=== PATIENT | female | born 1995 | race Caucasian/White ===

== ENCOUNTER → 2017-08-07 | Outpatient (CLI) | payer OTHER ==
[~2017-08-07] MED LIST: ACE3 PO; AUG875 PO; MINOCY50PT PO
--- NOTE | 2017-08-07 11:11 | RADIOLOGY IMAGING REPORT ---
FACILITY: [facility] PATIENT NAME: Courtney Ramos : 1995 MR: [id number] V: [id number] EXAM DATE: ORDERING PHYSICIAN: IRMA KU TECHNOLOGIST: Location: [facility] Patient: Courtney Ramos : 1995 Visit/Account:[id number] Date of Sevice: 08/07/2017 CHEST PA AND LAT INDICATION: Positive TB test COMPARISON: 09/28/2014 FINDINGS: Heart size within normal limits. There is no focal infiltrate or lobar consolidation. There is no pneumothorax or pleural effusion. IMPRESSION: 1. No acute cardiopulmonary process. No evidence of TB Report Dictated By: Jose Miller at 08/07/2017 11:05 AM Report E-Signed By: Jose Miller at 08/07/2017 11:06 AM WSN:[email or web address]
== END ==
LOC: LAB 10:01
PROVIDERS: ATTEND Pediatrics Adolescent Medicine
DX: R76.11 Nonspecific reaction to tuberculin skin test without active tuberculosis (principal)
CPT/HCPCS: 36415; 71046; 86480; 86706

== ENCOUNTER → 2017-11-01 | Outpatient (CLI) | payer OTHER | LOC: LAB 18:49 | PROVIDERS: ATTEND Pediatrics Adolescent Medicine | DX: Z28.3 Underimmunization status (principal) | CPT/HCPCS: 36415; 86706 ==